=== PATIENT | male | born 1970 | race Hispanic/Latino ===

== ENCOUNTER 2024-04-25 09:41 | Emergency (ER) | payer BC ==
[~2024-04-25] VITALS: Ht 175.3 cm; Wt 97.5 kg
[2024-04-25] MEDS: MORPHINE 4 MG SYG IVP ONE (10:26)
[2024-04-25] MEDS: ONDANSETRON 4MG INJ IVP ONE (10:26)
[2024-04-25 11:07] LABS: CREATININE 1.4 mg/dL (0.5-1.3); POTASSIUM 3.2 mmol/L (3.5-5.1)
[2024-04-25 11:14] LABS: ALBUMIN 3.9 g/dL (3.5-5.0); TOTAL PROTEIN, SERUM 8.1 g/dL (6.0-8.3)
[2024-04-25 11:32] LABS: BASOPHILS # (AUTO) 0.04 K/uL (0.00-0.20); BASOPHILS % (AUTO) 0.5 % (0.0-5.0); EOSINOPHILS # (AUTO) 0.11 K/uL (0.00-0.70); EOSINOPHILS % (AUTO) 1.5 % (0.0-8.0); HEMATOCRIT 42.4 % (42-54); IMMATURE GRANULOCYTE ABSOLUTE 0.03 K/uL (0-1); LYMPHOCYTES # (AUTO) 1.7 K/uL (1.0-4.8); LYMPHOCYTES % (AUTO) 23.7 % (21.0-51.0); MEAN CORPUSCULAR HEMOGLOBIN 30.2 pg (27.0-33.0); MEAN CORPUSCULAR HGB CONC 35.4 g/dL (32.0-36.0); MEAN CORPUSCULAR VOLUME 85.5 fL (79-99); MONOCYTES # (AUTO) 0.7 K/uL (0.1-1.0); MONOCYTES % (AUTO) 9.4 % (3.0-13.0); NEUTROPHILS # (AUTO) 4.7 K/uL (1.8-7.7); NEUTROPHILS % (AUTO) 64.5 % (40.0-77.0); PLATELET COUNT (AUTO) 211 K/uL (130-400); RED BLOOD CELL COUNT(AUTO) 4.96 MIL/uL (4.50-6.20); RED CELL DISTRIBUTION WIDTH 12.6 % (11.0-15.5); WHITE BLOOD COUNT (AUTO) 7.3 K/uL (4.8-10.8)
[2024-04-25] MEDS: POTASSIUM BICARB/CIT AC 25 MEQ TABLET.EFF PO ONE (13:11)
[2024-04-25] MEDS: 0.9%NACL 1000ML 1,000 ML IV ONE (13:11)
[2024-04-25] MEDS: HYOSCYAMINE SULFATE 0.125 MG TAB.SUBL SL ONE (13:11)
[2024-04-25] MEDS ORDERED: ONDA-243 PO (14:46)
[2024-04-25 14:57] VITALS: BP 121/77; PULSE 66; RESP 18; O2SAT 96
== END 2024-04-25 15:11 | disposition home or self-care (01) ==
LOC: EDH 09:41
DX: R10.84 Generalized abdominal pain (principal); E87.6 Hypokalemia; I10 Essential (primary) hypertension; Z98.890 Other specified postprocedural states
CPT/HCPCS: 99284; 96374; 76700; 71045; 96375; 83735; 84484; 80053; 83690; 85025; 36415; 93005; J7030; J2405; J2270

== ENCOUNTER 2024-06-17 09:37 | Emergency (ER) | payer BC ==
[~2024-06-17] VITALS: Ht 175.3 cm; Wt 90.7 kg
[~2024-06-17 09:37] MED LIST: ONDA-243 PO
[2024-06-17 10:16] LABS: BASOPHILS # (AUTO) 0.02 K/uL (0.00-0.20); BASOPHILS % (AUTO) 0.3 % (0.0-5.0); EOSINOPHILS # (AUTO) 0.13 K/uL (0.00-0.70); EOSINOPHILS % (AUTO) 1.9 % (0.0-8.0); HEMATOCRIT 41.6 % (42-54); IMMATURE GRANULOCYTE ABSOLUTE 0.03 K/uL (0-1); LYMPHOCYTES # (AUTO) 1.2 K/uL (1.0-4.8); MEAN CORPUSCULAR HEMOGLOBIN 30.9 pg (27.0-33.0); MEAN CORPUSCULAR HGB CONC 35.3 g/dL (32.0-36.0); MEAN CORPUSCULAR VOLUME 87.4 fL (79-99); MONOCYTES # (AUTO) 0.7 K/uL (0.1-1.0); MONOCYTES % (AUTO) 10.6 % (3.0-13.0); NEUTROPHILS # (AUTO) 4.9 K/uL (1.8-7.7); NEUTROPHILS % (AUTO) 69.8 % (40.0-77.0); PLATELET COUNT (AUTO) 198 K/uL (130-400); RED BLOOD CELL COUNT(AUTO) 4.76 MIL/uL (4.50-6.20); RED CELL DISTRIBUTION WIDTH 12.3 % (11.0-15.5)
[2024-06-17 10:53] LABS: ALBUMIN 3.7 g/dL (3.5-5.0); CREATININE 1.7 mg/dL (0.5-1.3); TOTAL PROTEIN, SERUM 8.2 g/dL (6.0-8.3)
[2024-06-17 11:04] VITALS: BP 130/85; PULSE 59; RESP 20; O2SAT 96
[2024-06-17 11:08] LABS: POTASSIUM 2.8 mmol/L (3.5-5.1)
[2024-06-17 11:14] LABS: INFLUENZA TYPE A Negative For Type A (NEGATIVE); INFLUENZA TYPE B Negative For Type B (NEGATIVE)
[2024-06-17 11:16] LABS: SARS-CoV-2, RNA, NAAT POSITIVE SARS CoV-2 (NEGATIVE)
[2024-06-17] MEDS: POTASSIUM BICARB/CIT AC 25 MEQ TABLET.EFF PO ONE (11:31)
[2024-06-17] MEDS ORDERED: POTA-192 PO (13:16)
[2024-06-17] MEDS ORDERED: BENZ-39 PO (13:16)
[2024-06-17 13:31] LABS: APPEARANCE,URINE CLEAR (CLEAR); BILIRUBIN,URINE NEGATIVE (NEGATIVE); COLOR,URINE YELLOW (YELLOW); GLUCOSE, URINE (UA) NEGATIVE (NEGATIVE); KETONES,URINE NEGATIVE (NEGATIVE); LEUKOCYTE ESTERASE ,URINE NEGATIVE Leu/uL (NEGATIVE); NITRATE,URINE NEGATIVE (NEGATIVE); OCCULT BLOOD,URINE NEGATIVE (NEGATIVE); PH,URINE 7.5 (5.0-8.0); PROTEIN,URINE 70 mg/dL (NEGATIVE)
[2024-06-17 13:34] LABS: ADD UA MICROSCOPIC YES
[2024-06-17 13:55] LABS: BACTERIA,URINE RARE /HPF (None Seen); MUCUS,URINE FEW LPF (None Seen)
== END 2024-06-17 13:57 | disposition home or self-care (01) ==
LOC: EDH 09:37
DX: U07.1 COVID-19 (principal); E87.6 Hypokalemia; R55 Syncope and collapse; E86.0 Dehydration; F32.A Depression, unspecified; I10 Essential (primary) hypertension; Z79.899 Other long term (current) drug therapy
CPT/HCPCS: 36415; 80053; 81001; 84484; 85025; 87635; 87804; 93005